=== PATIENT | male | born 1935 | race Caucasian/White ===

== ENCOUNTER 2023-03-26 13:06 | Emergency (ER) | payer BC, MEDICARE ==
[~2023-03-26] VITALS: Ht 180.3 cm; Wt 76.4 kg
[~2023-03-26 13:06] MED LIST: AMLO10TA4 PO; ATOR20TA66 PO; HYDR-4353 PO; LANS15CA14 PO; MESA0.37 PO
[2023-03-26 13:38] VITALS: BP 151/92; PULSE 98; RESP 18; TEMP 97.8; O2SAT 98
[2023-03-26] MEDS ORDERED: SULF1TAB49 PO (14:22)
[2023-03-26] MEDS ORDERED: CEPH-585 PO (14:22)
== END 2023-03-26 14:30 | disposition home or self-care (01) ==
LOC: ER 13:06
DX: L03.114 Cellulitis of left upper limb (principal); I10 Essential (primary) hypertension; Z72.89 Other problems related to lifestyle; Z79.899 Other long term (current) drug therapy
CPT/HCPCS: 99283